=== PATIENT | male | born 1990 | race Caucasian/White ===

== ENCOUNTER → 2021-04-29 | Outpatient (CLI) | payer OTHER ==
[~2021-04-29] MED LIST: HYDROCODON-ACE1 EAC7 PO
== END ==
LOC: M.PC 08:30
PROVIDERS: ATTEND Physical Medicine & Rehabilitation
DX: M25.562 Pain in left knee (principal); G62.9 Polyneuropathy, unspecified; M54.12 Radiculopathy, cervical region; M75.41 Impingement syndrome of right shoulder; M25.511 Pain in right shoulder; Z79.891 Long term (current) use of opiate analgesic; Z79.899 Other long term (current) drug therapy

== ENCOUNTER 2021-08-22 05:03 | Emergency (ER) | payer OTHER ==
[~2021-08-22] VITALS: Ht 180.3 cm; Wt 86.2 kg
--- NOTE | ~2021-08-22 | EKG ---
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
[2021-08-22 05:27] LABS: ABSOLUTE BASOPHILS 0.1 thou/uL (0.0-0.2); ABSOLUTE EOSINOPHILS 0.1 thou/uL (0.0-0.7); ABSOLUTE LYMPHOCYTES 2.2 thou/uL (0.8-5.3); ABSOLUTE MONOCYTES 0.5 thou/uL (0.0-1.2); ABSOLUTE NEUTROPHILS 4.9 thou/uL (1.6-8.1); BASOPHILS 0.9 %; EOSINOPHILS 1.1 %; HEMATOCRIT 41.3 % (42.0-52.0); HEMOGLOBIN 14.6 gm/dL (14.0-18.0); LYMPHOCYTES 27.9 %; MCHC 35.2 g/dL (28.0-37.0); MCV 88.1 fL (80.0-100.0); NUCLEATED RBCS 0 /100WBC; PLATELET COUNT* 228 thou/uL (150-400); POLYS 63.1 %; RBC 4.69 mil/uL (4.50-6.00); RDW-CV 12.4 % (10.5-14.5); WBC 7.8 thou/uL (4.0-11.0)
[2021-08-22 05:36] LABS: CALCIUM 9.2 mg/dL (8.5-10.1); CREATININE 0.9 mg/dL (0.6-1.3); POTASSIUM 3.1 mmol/L (3.5-5.1)
[2021-08-22 05:39] LABS: APTT 21.7 Seconds (25.0-31.3); PROTIME 10.7 Seconds (9.20-11.50)
[2021-08-22 05:40] LABS: ALBUMIN 4.6 g/dL (3.4-5.0); MAGNESIUM 1.8 mg/dL (1.8-2.4); TOTAL BILIRUBIN 0.5 mg/dL (<0.1-1.0); TOTAL PROTEIN 8.1 g/dL (6.4-8.2)
[2021-08-22] MEDS ORDERED: PHENERGAN 25 MG25 M1 PO (08:57)
[2021-08-22] MEDS ORDERED: BENTYL 10 MG CA10 M1 PO (08:57)
[2021-08-22 09:04] LABS: URINE BILIRUBIN NEGATIVE (Negative); URINE BLOOD 1+ (Negative); URINE CLARITY CLEAR; URINE COLOR YELLOW; URINE GLUCOSE-RANDOM NEGATIVE (Negative); URINE KETONES NEGATIVE (Negative); URINE LEUKOCYTES-REFLEX NEGATIVE (Negative); URINE NITRITE-REFLEX NEGATIVE (Negative); URINE PROTEIN TRACE (Negative); URINE SPECIFIC GRAVITY <= 1.005 (1.005-1.030); URINE UROBILINOGEN 0.2 E.U./dl (0.2-1.0)
[2021-08-22 09:12] LABS: AMP/METHAMP Negative (Negative); BARBITURATES Negative (Negative); BENZODIAZEPINES Negative (Negative); COCAINE Negative (Negative); METHADONE Negative (Negative); OPIATES Negative (Negative); PCP Negative (Negative); THC POSITIVE (Negative)
[2021-08-22 09:17] LABS: SQUAMOUS NONE SEEN /LPF (0-3); URINE RBC 0-2 Rare /HPF (0-2); URINE WBC-REFLEX None Seen /HPF (0-5)
[2021-08-22 09:18] LABS: BACTERIA-REFLEX None Seen /HPF (None Seen); CASTS None Seen /LPF (None Seen); CRYSTALS None Seen /LPF (None Seen); MUCUS None Seen strn/LPF (None Seen)
[2021-08-22 09:29] VITALS: BP 115/72
--- NOTE | 2021-08-22 11:21 | EKG ---
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1990 Requested By: Yael Levine Order Number: [id number] MD: Chung Titus Measurements Intervals [place] Rate: 68 P: 20 VA: 161 QRS: -17 QRSD: 117 T: 39 QT: 558 QTc: 594 Interpretive Statements Sinus rhythm Nonspecific intraventricular conduction delay Nonspecific T abnrm, anterolateral leads No previous ECG available for comparison Electronically Signed On 08-22-2021 11:21:05 CDT by Chung Titus [email or web address] <ELECTRONICALLY SIGNED> By: Chung Titus MD, FAC 08/22/21 1121 0504 0504 Chung Titus MD, [facility] /EPI
--- NOTE | 2021-08-22 11:22 | EKG ---
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
== END 2021-08-22 09:31 | disposition home or self-care (01) ==
LOC: M.ERS 05:03
PROVIDERS: Personal Emergency Response Attendant
DX: R11.2 Nausea with vomiting, unspecified (principal); R10.10 Upper abdominal pain, unspecified; Z20.822 Contact with and (suspected) exposure to COVID-19